=== PATIENT | female | born 1975 | race American Indian/Alaskan Native ===

== ENCOUNTER 2018-08-13 10:16 | Emergency (ER) | payer BC ==
[2018-08-13] MEDS ORDERED: FUL-GLO OP ONE (11:28)
[2018-08-13] MEDS ORDERED: TETRACAINE 0.5% OU ONE (11:29)
--- NOTE | 2018-08-13 12:47 | Emergency Department Report ---
[facility] Chief Complaint: Eye Problems Stated Complaint: RT EYE PAIN/RED Time Seen by Provider: 08/13/18 11:03 Duration: 2 Days Side: Right Severity: moderate Symptoms: Yes Eye Redness, Yes Eye Pain, No Eye Itching, No Mucous Drainage, No Purulent Drainage, No Blurred Vision, No Preceding URI, No H/O Allergic Rhinitis, No Contact Lens Use, No Trauma, No Fever, No Headache Other History: She is a 42-year-old female with no prior medical history presents to the ED complaining of right eye pain and some redness for the past 2 days. Patient states that she had no foreign objects in the eye. Patient does states that she really contacts. Patient states she took a nap them on but does not sleep overnight with them ED Review of Systems ROS: Stated complaint: RT EYE PAIN/RED Other details as noted in HPI Comment: All other systems reviewed and negative ED Past Medical Hx - Past Medical History Previous Medical History?: No - Surgical History Past Surgical History?: No - Social History Smoking Status: Never Smoker Substance Use Type: None - Medications Home Medications: Home Medications Medication Instructions Recorded Confirmed Last Taken Type Ketorolac Tromethamin 0.4%(Nf) 1 - 2 drop OP BID #5 ml 08/13/18 Unknown Rx [Acular Ls 0.4% Ophth [place]] Ofloxacin [Ocuflox 0.3%] 1 - 2 drop OP Q6HR #5 ml 08/13/18 Unknown Rx [facility] Exam - Exam General: Vital signs noted. No distress. Alert and acting appropriately. Eye Exam: Neither Injection, Neither Chemosis, Neither Abnormal Pupil, Neither EOMI, Neither Eye Foreign Body, Neither Lid Foreign Body, Neither Mucous Disch arge, Neither Purulent Discharge, Neither Fluorescein Uptake HEENT: No Nasal Congestion, No Pharyngeal Erythema Remainder of HEENT: Normal Lungs: Yes Clear Lung Sounds, Yes Good Air Exchange, No Wheezes, No Stridor, No Cough, No Nasal Flaring, No Retractions, No Use of Accessory Muscles Exam: No upper or lower eye lid edema ED Course Vital Signs 08/13/18 10:20 Temperature 97.8 F Pulse Rate 82 Respiratory 16 Rate Blood Pressure 130/85 O2 Sat by Pulse 97 Oximetry ED Medical Decision Making - Medical Decision Making 42-year-old female presents with blepharitis with conjunctivitis to right eye Wound Negative for corneal abrasion Discussed the patient to follow up with primary care physician in 3-5 days Vision is intact patient has no vision loss. Discussed the patient to use antibiotic eyedrops as prescribed. Patient understands instructions and she will follow-up. Critical care attestation.: If time is entered above; I have spent that time in minutes in the direct care of this critically ill patient, excluding procedure time. ED Disposition Clinical Impression: Conjunctivitis, Blepharitis of eyelid of right eye Disposition: - TO HOME OR SELFCARE Is pt being admited?: No Does the pt Need Aspirin: No Condition: Stable Instructions: Conjunctivitis (ED), Corneal Abrasion (ED), Blepharitis (ED) Additional Instructions: Make sure to follow up with the primary care physician as discussed. Take all your medications as you've been prescribed. If you have any worsening symptoms or develop new symptoms please return to ED immediately. Prescriptions: Ketorolac Tromethamin 0.4%(Nf) [Acular Ls 0.4% Ophth [place]] 1 - 2 drop OP BID #5 ml Ofloxacin [Ocuflox 0.3%] 1 - 2 drop OP Q6HR #5 ml Referrals: [facility] [Other] - 3-5 Days TRES GALVEZ MD [Staff Physician] - 3-5 Days Forms: Work/School Release Form(ED) Time of Disposition: 12:59
[2018-08-13 13:55] VITALS: BP 118/72
== END 2018-08-13 13:53 | disposition home or self-care (01) ==
LOC: ED 10:16
DX: H01.003 Unspecified blepharitis right eye, unspecified eyelid (principal); H10.9 Unspecified conjunctivitis